=== PATIENT | male | born 1990 | race Caucasian/White ===

== ENCOUNTER 2023-01-06 08:00 | Inpatient (IN) ==
--- NOTE | 2022-12-10 10:04 | PAT Medication Instructions ---
Medication Instructions Date of Service December 10, 2022 Home Medications cetirizine 10 mg tablet (Zyrtec) 10 mg PO QAM PRN seasonal allergies acetaminophen 650 mg tablet,extended release 650 mg PO Q12H PRN Pain gabapentin 300 mg capsule 900 mg PO HS DO NOT take the morning of surgery cetirizine 10 mg tablet (Zyrtec) 10 mg PO QAM PRN seasonal allergies Take morning of surgery With a small sip of water, OTHERWISE NOTHING TO EAT OR DRINK AFTER MIDNIGHT: acetaminophen 650 mg tablet,extended release 650 mg PO Q12H PRN Pain (if needed) Take evening before surgery acetaminophen 650 mg tablet,extended release 650 mg PO Q12H PRN Pain (if needed) gabapentin 300 mg capsule 900 mg PO HS Other Notes If you have any questions please call us at [phone] or [phone] or [phone] or [phone]
--- NOTE | 2022-12-12 10:49 | Anesthesiology Consultation ---
Date of Service December 12, 2022 Assessment & Plan (1) Encounter for pre-operative examination: - COVID screening: Per assessment on 12/12: No known COVID-19 positive contacts or current COVID-19 related symptoms. Travel screen negative. At surgeon discretion if preop Covid testing being done. - Preop EKG: TWA, consider lateral ischemia on preop EKG performed 12/12/22. Note written to PCP. Awaiting EKG response and surgeon-ordered preop evaluation (Dr. Ramirez/ANGELINA, appt 12/15). Chart Review Chart Review: Patient seen in Pre Admission Testing Teaching & Discussion Pre-Anesthesia Teaching/Discussion Notes: Instructed NPO after midnight before surgery,except medications with 15 cc of water. Medication instructions provided according to the PAT guidelines. History Surgery Operation Date: 01/06/23 13:25 Proposed Procedures p L4-S1 Decompression and Fusion, Spinal Cord Monitoring - Eusebio Rivera, Height/Weight Height: 5 ft 9 in Weight: 86.6 kg Allergies Allergy/AdvReac Type Severity Reaction Status Date / Time nickel Allergy Mild Mild skin Verified 12/10/22 13:06 irritation (with necklace) amoxicillin Allergy Unknown Hives Verified 12/10/22 13:06 cefaclor Allergy Unknown Hives Verified 12/10/22 13:06 clavulanic acid Allergy Unknown Hives Verified 12/10/22 13:06 Medications Home Medications Medication Instructions Recorded Confirmed Last Taken cetirizine 10 mg tablet (Zyrtec) 10 mg PO QAM PRN seasonal allergies 04/29/19 12/05/22 04/29/19 acetaminophen 650 mg 650 mg PO Q12H PRN Pain 12/05/22 12/05/22 Unknown tablet,extended release gabapentin 300 mg capsule 900 mg PO HS 12/05/22 12/05/22 Unknown Past Medical History Medical History Chronic back pain Degenerative disc disease History of COVID-19 end (home test)- muscle pain and mild cold symptoms > resolved Lumbar disc herniation Peripheral neuropathy Seasonal allergies Exercise / Class Metabolic Activity II 4-5 Yardwork/Stairs/Walk up hill Past Family History Family History Other No family history of adverse response to anesthesia Past Surgical History Surgical History H/O wisdom tooth extraction Hx of tonsillectomy S/P epidural steroid injection lumbar x1 S/P lumbar laminectomy 2015, [facility] Past Anesthesia History No Hx of Anesthesia Complications and No Family Hx of Anesthesia Complications History of PONV No Hx of PONV and No Hx of Motion Sickness Social History Smoking Status: Current some day smoker tobacco type: cigars and e-cigarettes Smoking cigarettes per day: Vapes daily, cigars occasionally (advised) Do You Dip or Chew Tobacco: No Hx Alcohol Use: Yes Alcohol type: beer alcohol intake frequency: a few times a week Hx Substance Use: No substance use type: does not use Review of Systems Patient denies chest pain, shortness of breath, dyspnea on exertion, fever, chills, cough, wheezing, palpitations. Physical Exam Vital Signs VITALS BP 131/89 P 96 TEMP 98.4 SP02 97%RA RESP 16 PHYSICAL Full cervical extension range of motion. Full TMJ range of motion. TMD 3 finger breaths Mallampati Score 3 Dentition: missing molar, + crowns (molars) Lungs: clear throughout to auscultation Cardiac: regular rate and rhythm, no murmurs noted Spine: normal Carotid arteries: negative bruit Extremities: no edema Lab Results Anesthesia Preop Results Results Anesthesia Widget: WBC 7.71 K/ul (4.8-10.8) 12/12/22 Hgb 14.1 g/dl (14.0-18.0) 12/12/22 Hct 39.1 % (42.0-52.0) L 12/12/22 Plt 412 K/uL (130-400) H 12/12/22 Na 139 mmol/L (136-145) 12/12/22 K 3.9 mmol/L (3.5-5.1) 12/12/22 Cl 104 mmol/L (98-107) 12/12/22 CO2 27 mmol/L (21-32) 12/12/22 BUN 15 mg/dl (6-23) 12/12/22 Creat 0.84 mg/dl (0.6-1.4) 12/12/22 Glucose Level 99 mg/dl (70-99(Fasting)) 12/12/22 PT 10.9 Seconds (9.0-12.0) 12/12/22 PTT 24.8 Seconds (21.0-31.0) 12/12/22 INR 1.0 (0.9-1.1) 12/12/22 Urine Color Yellow 12/12/22 Urine Appearance Clear (Clear) 12/12/22 Urine pH 5.0 (4.5-7.5) 12/12/22 Urine Specific [place] 1.025 (1.000-1.030) 12/12/22 Urine Protein Negative (Negative) 12/12/22 Urine Glucose (UA) Negative (Negative) 12/12/22 Urine Ketones Trace (Negative) H 12/12/22 Urine Blood Negative (Negative) 12/12/22 Urine Nitrite Negative (Negative) 12/12/22 Urine Bilirubin Negative (Negative) 12/12/22 Urine Urobilinogen Negative (Negative) 12/12/22 Urine Leukocyte Esterase Negative (Negative) 12/12/22 Blood Type A Positive 12/12/22 Antibody Screen NEGATIVE 12/12/22 Testing Electrocardiogram Date: 12/12/22 NSR at 88bpm. Rightward axis. TWA, consider lateral ischemia. Chest X-Ray Date: 12/12/22 FINDINGS: No lines and tubes are seen. The cardiomediastinal silhouette is normal. The lungs are clear. No evidence of pleural effusion or pneumothorax. IMPRESSION: No acute chest disease. COVID-19 Risk Screen Screening Information COVID-19 Screen Date: 12/12/22 Exposure 21 Days Family/Household +COVID Last 21 Days: No Exposure 10 Days Any COVID Exposure Last 10 Days: No Symptoms Last 10 Days Experienced COVID Sx Last 10 Days: No + COVID 0-90 Days COVID + in Last 0-90 Days: No
[~2023-01-06 08:00] MED LIST: ACETAMINOPHEN 500 MG TAB PO SCH; ALLERGY Noted to ORDERED Medication SCH; CeleBREX 200 MG CAP PO SCH; GABAPENTIN 900 MG DOSE PO SCH; LR 15ML/HR IV SCH
[2023-01-06] MEDS ORDERED: ONDANSETRON INJ 2 MG/ML 2 ML VIAL ONE (08:26)
[2023-01-06] MEDS ORDERED: PROPOFOL IV EMULSION 10 MG/ML 20 ML VIAL IV ONE (08:26)
[2023-01-06] MEDS ORDERED: ROCURONIUM BROMIDE 10 MG/ML 5 ML VIAL IV ONE (08:26)
[2023-01-06] MEDS ORDERED: LIDOCAINE 2% MPF LOCAL 5 ML VIAL INFIL ONE (08:26)
[2023-01-06] MEDS ORDERED: MIDAZOLAM HCL 1 MG/ML 2ML VIAL ONE (08:26)
[2023-01-06] MEDS ORDERED: fentaNYL citrate PF 100 MCG/2 ML VIAL ONE ×3 (08:26→12:17)
[2023-01-06] MEDS ORDERED: DEXAMETHASONE SOD INJ 4 MG/ML VIAL ONE (08:26)
--- NOTE | 2023-01-06 09:14 | History & Physical Bridge Note ---
Date of Service January 06, 2023 History & Physical Bridge Note I have examined the patient, reviewed the History & Physical and in the interval since the performance of the History & Physical I have noted the following changes of clinical significance: no changes noted
--- NOTE | 2023-01-06 09:15 | History & Physical Report ---
Date of Service January 06, 2023 Assessment & Plan (1) Lumbar disc herniation with radiculopathy: Plan: L4-S1 decompression and fusion History of Present Illness Chief Complaint: Back and leg pain Primary Care Provider: Steve Ramirez MD This is a 32 male who presents with chronic persistent back and leg pain after failing course of nonoperative care is here for surgical intervention. Allergies Allergy/AdvReac Type Severity Reaction Status Date / Time nickel Allergy Mild Mild skin Verified 01/06/23 08:20 irritation (with necklace) amoxicillin Allergy Unknown Hives Verified 01/06/23 08:20 cefaclor Allergy Unknown Hives Verified 01/06/23 08:20 clavulanic acid Allergy Unknown Hives Verified 01/06/23 08:20 Home Medications Medication Instructions Recorded Confirmed Type cetirizine 10 mg tablet (Zyrtec) 10 mg PO QAM PRN seasonal allergies 04/29/19 01/06/23 History acetaminophen 650 mg 650 mg PO Q12H PRN Pain 12/05/22 01/06/23 History tablet,extended release gabapentin 300 mg capsule 900 mg PO HS 12/05/22 01/06/23 History ibuprofen 800 mg tablet 1 mg PO DIRECTED 01/06/23 01/06/23 History Past Med/Surg History Medical History Chronic back pain Degenerative disc disease History of COVID-19 end (home test)- muscle pain and mild cold symptoms > resolved Lumbar disc herniation Peripheral neuropathy Seasonal allergies Surgical History H/O wisdom tooth extraction Hx of tonsillectomy S/P epidural steroid injection lumbar x1 S/P lumbar laminectomy 2014, [facility] Family History Other No family history of adverse response to anesthesia Social History Smoking Status: Current some day smoker Cigarettes Per Day: Vapes daily, cigars occasionally (advised); Second Hand Exposure: No; Do You Dip or Chew Tobacco: No; Tobacco Cessation Education Requested by Patient: No Hx Alcohol Use: Yes Alcohol type: beer Hx Substance Use: No Preferred Language: Uzbek Communication Ability: Effective Manager Human Capital Required: No Beliefs That Will Affect Care: None Current Living Situation: Spouse and Family Current Living Situation Comment: and 2 children Other Information That Helps Us Care for You: No Feels Safe at Home: Yes Safety Concerns: Feels Safe At This Time Assistive Devices: Brace/Splint/Immobilizer Assistive Devices Comment: back brace PRN Physical Exam Physical Exam: Patient is alert and oriented Heart regular rhythm Lungs clear Results & Data Results & Data Vital Signs (Past 12 Hours) Vital Signs Temp Pulse Resp BP Pulse Ox O2 Del Method 01/06/23 08:24 36.8 C 91 H 20 132/86 95 Room Air
[2023-01-06] MEDS ORDERED: CLINDAMYCIN 900 MG/D5W 50 ML BAG IV ONE (09:21)
[2023-01-06] MEDS ORDERED: BUPIVACAINE/EPINEPHRINE 0.5% MPF 1:200,000 30 ML VIAL ONE (09:29)
[2023-01-06] MEDS: ceFAZolin 330 MG/ML 1 GM VIAL ONE ×2 (09:51→10:34)
[2023-01-06] MEDS ORDERED: FLOSEAL HEMOSTATIC MATRIX 10ML TOP ONE (10:35)
[2023-01-06] MEDS ORDERED: SUGAMMADEX SODIUM 200 MG/2 ML VIAL IV ONE (11:19)
--- NOTE | 2023-01-06 11:42 | Operative Report ---
Post Operative Report Pre & Post Diagnosis Operation Date: 01/06/23 09:35 Pre-Op Diagnosis: Recurrent lumbar Disc Herniation with Radiculopathy Post-Op Diagnosis: Same I identified the patient and participated in the time-out.: Yes Procedure Operation Date: 01/06/23 09:35 Actual Procedures #1 revision decompression with bilaterally. Recent foraminotomies L4-L5 L5-S1. #2 posterior spinal fusion L4-L5 L5-S1. #3 placement posterior instrumentation L4-L5 L5-S1. #4 interbody fusion L4-L5 L5-S1. #5 placement of Spira 15 x 26 mm cage at L4-L5 and 13 x 26 mm cage at L5-S1. #6 placement locally harvested morselized autograft in the posterior gutters. #7 placement of I factor combined with V toss in the interbody space and posterior gutters. Surgeon Eusebio Rivera DO Organizational Development Specialist Rosario Brewer Estimated Blood Loss 100 Findings Consistent with Post-Op Diagnosis Specimens None Indications This is a 32-year-old male who presents above-mentioned diagnosis after failing since course of nonoperative care is here for surgical invention. Description of Procedure Patient was met with identified informed consent obtained. Patient was then taken to the operative suite underwent ablation placed in a prone position on the Deon table atop the Jonathan frame. All bony promises well-padded eyes inspected to ensure no external pressure placed upon the. This point the lumbar spine was prepped and draped in normal sterile fashion. Sharp dissection with the assistance of Bovie cautery from down to and exposing the remaining lamina and transverse processes of L4-5 and sacral ala bilaterally. From caudal cephalad fashion revision complete laminectomy of L5 and L4 was performed including medial facetectomies and foraminotomies as well as addressing recurrent massive disc herniation L5-S1 the right. After complete decompression pedicle screws were placed in L4-L5 and S1 levels bilaterally with assistance of fluoroscopy and properly sized albertina placed. By way of transforaminal approach on the right complete discectomy of L5-S1 was performed endplates curetted to subco rtical bleeding bone and a 13 x 26 mm Spira cage with I factor tapped in position. Then proceeded to L4-L5 and again by way of a transforaminal approach and right complete discectomy performed endplates curetted to subcortical bleeding bone and a 15 x 26 mm Spira cage with I factor tapped in position. The rods were then compressed locked in final position bilaterally. The transverse processes of L4-5 and sacral ala burred to subcortically bone. I factor amount of the test and locally harvested morselized autograft placed in the posterior gutters. 15 round SHARAN drain inserted. The incision was then closed with 1 Vicryl to fascia 2-0 Vicryl subcutaneously and 4 Monocryl for final skin closure. Steri-Strip sterile dressings placed. Patient waken taken to PACU in stable condition. Please note spinal cord monitoring was utilized at the procedure and no changes noted. Lastly Rosario Brewer was present out the entire procedure and with the patient positioning complex portions of the surgery and final skin closure. I attest to the content of the Intraoperative Record and any orders documented therein. Any exceptions are noted below.
--- NOTE | 2023-01-06 12:07 | Fluoroscopy Report ---
INTRAOPERATIVE RADIOGRAPHS CLINICAL HISTORY: L4-S1 spinal fusion. Fluoro time: 24 seconds. Exposure: 19.6 mGy FINDINGS: 2 spot fluoroscopic views of the lumbar spine are presented. There has been discectomy at L 4-L5 and L5-S1 with laminectomy and posterior fusion at L4-S1. Interpedicular screws are present at a ll levels. The orthopedic hardware appears intact. IMPRESSION: Intraoperative images from lumbar spinal fusion surgery as above. Electronically signed by: Antwon Velez M.D. 01/06/2023 12:06 PM
[2023-01-06] MEDS: fentaNYL citrate PF 100 MCG/2 ML VIAL IV PRN ×2 (12:20→12:29)
[2023-01-06] MEDS ORDERED: HYDROmorphone INJ 1 MG/ML SYRINGE ONE (12:38)
[2023-01-06] MEDS ORDERED: ONDANSETRON INJ 2 MG/ML 2 ML VIAL IV PRN ×2 (12:40→13:36)
[2023-01-06] MEDS ORDERED: fentaNYL citrate PF 100 MCG/2 ML VIAL IV PRN (12:40)
[2023-01-06] MEDS ORDERED: PROMETHAZINE HCL 12.5 MG in SODIUM CHLORIDE 0.9% 50 ML IV PRN ×2 (12:40→13:36)
[2023-01-06] MEDS ORDERED: ePHEDrine sulfate 50 MG/ML AMP IV PRN (12:40)
[2023-01-06] MEDS ORDERED: ATROPINE SULFATE 0.1 MG/ML 10ML SYR IV PRN (12:40)
[2023-01-06] MEDS: HYDROmorphone INJ 2 MG/ML SYR/VIAL IV PRN ×2 (12:52→12:58)
--- NOTE | 2023-01-06 13:08 | Anesthesiology Progress Note ---
Date of Service January 06, 2023 Anesthesia Post Procedure Vital Signs Vital Signs: Temp Pulse Pulse Resp BP Pulse Ox O2 Del Method 01/06/23 12:59 72 12 110/61 100 Nasal Cannula 01/06/23 12:50 75 12 113/62 98 Nasal Cannula 01/06/23 12:40 70 12 108/62 100 Nasal Cannula 01/06/23 12:30 76 12 112/55 L 96 Nasal Cannula 01/06/23 12:20 77 14 116/70 97 Room Air 01/06/23 12:10 36.1 C L 84 12 116/74 100 Oxymask 01/06/23 12:00 36.1 C L 86 13 122/60 100 Oxymask 01/06/23 11:53 36.1 C L 97 H 9 L 122/71 99 Oxymask 01/06/23 08:24 36.8 C 91 H 20 132/86 95 Room Air O2 Flow Rate 01/06/23 12:59 3 01/06/23 12:50 3 01/06/23 12:40 3 01/06/23 12:30 3 01/06/23 12:20 01/06/23 12:10 5 01/06/23 12:00 5 01/06/23 11:53 8 01/06/23 08:24 Pain Intensity Right Lower Buttock: Pain Intensity: 4 Transfer of Care Handoff Completed per policy Notes Mental Status: alert / awake / arousable and participated in evaluation Patient Amnestic to Procedure: Yes Nausea / Vomiting: adequately controlled Pain: adequately controlled Airway Patency, RR, SpO2: stable & adequate BP & HR: stable & adequate Hydration State: stable & adequate Anesthetic Complications: no major complications apparent
[2023-01-06] MEDS ORDERED: METOCLOPRAMIDE HCL INJ 5 MG/ML 2 ML VIAL IV PRN (13:36)
[2023-01-06] MEDS ORDERED: HYDROmorphone INJ 0.5 MG/0.5 ML SYR IV PRN (13:36)
[2023-01-06] MEDS ORDERED: LORazepam 0.5 MG TAB PO PRN (13:36)
[2023-01-06] MEDS ORDERED: FAMOTIDINE 20 MG TAB PO PRN (13:36)
[2023-01-06] MEDS ORDERED: ACETAMINOPHEN 500 MG TAB PO PRN (13:36)
[2023-01-06] MEDS ORDERED: diphenhydrAMINE Capsule 25 MG CAP PO PRN (13:36)
[2023-01-06] MEDS ORDERED: LORazepam 2 MG/1 ML VIAL IV PRN (13:36)
[2023-01-06] MEDS ORDERED: SOD PHOSPHATE/SOD BIPHOSPHATE ENEMA 132 ML BTL PR PRN (13:36)
[2023-01-06] MEDS ORDERED: bisacodyL 10 MG SUPP PR PRN (13:36)
[2023-01-06] MEDS ORDERED: ONDANSETRON 4 MG OD TAB PO PRN (13:36)
[2023-01-06] MEDS ORDERED: hydrOXYzine HCl 25 MG TAB PO PRN (13:36)
[2023-01-06] MEDS ORDERED: HYDROmorphone INJ 1 MG/ML SYRINGE IV PRN (13:36)
[2023-01-06] MEDS ORDERED: ALUMINUM/MAGNESIUM SUSP 30 ML UDC PO PRN (13:36)
[2023-01-06] MEDS ORDERED: CETIRIZINE HCL 10 MG TABLET PO PRN (13:36)
[2023-01-06] MEDS ORDERED: DO NOT ADMINISTER PNEUMOCOCCAL VACCINE PRN (13:36)
[2023-01-06] MEDS ORDERED: DO NOT ADMINISTER FLU VACCINE PRN (13:36)
[2023-01-06] MEDS ORDERED: MAGNESIUM HYDROXIDE SUSP 30 ML UDC PO PRN (13:36)
[2023-01-06] MEDS ORDERED: ACETAMINOPHEN 1,000 MG/100 ML VIAL IV PRN (13:36)
[2023-01-06] MEDS ORDERED: NALOXONE HCL 0.4 MG/1 ML VIAL/CARP IV PRN (13:36)
[2023-01-06] MEDS: LACTATED RINGER'S 1,000 ML IV SCH ×2 (13:57→22:09)
[2023-01-06] MEDS: CLINDAMYCIN/D5W 600 MG/50 ML BAG IV SCH (16:55)
[2023-01-06] MEDS: oxyCODONE HCL IR 5 MG TAB (IMMEDIATE RELEASE) PO PRN (20:04)
[2023-01-06] MEDS: DOCUSATE SODIUM/SENNA 50/8.6MG TAB PO SCH (20:04)
[2023-01-06] MEDS: GABAPENTIN 300 MG CAP PO SCH (20:04)
[2023-01-07] MEDS: oxyCODONE HCL IR 5 MG TAB (IMMEDIATE RELEASE) PO PRN ×5 (00:40→19:17)
[2023-01-07] MEDS: CLINDAMYCIN/D5W 600 MG/50 ML BAG IV SCH (01:37)
[2023-01-07] MEDS: LACTATED RINGER'S 1,000 ML IV SCH (02:46)
[2023-01-07] MEDS: POLYETHYLENE (MIRALAX) 17 GM PACK PO SCH ×2 (05:21→11:10)
[2023-01-07 06:50] LABS: Basophils # (auto) 0.04 K/uL (0-0.2); Basophils % (auto) 0.2 %; Eosinophils # (auto) 0.02 K/uL (0-0.50); Eosinophils % (auto) 0.1 %; Hematocrit (blood only) 34.6 % (42.0-52.0); Hemoglobin 12.2 g/dl (14.0-18.0); Immature Granulocytes # (auto) 0.07 K/uL (0.01-0.20); Immature Granulocytes % (auto) 0.4 %; Lymphocytes # (auto) 1.72 K/uL (1.2-3.4); Lymphocytes % (auto) 10.4 %; Mean Corpuscular Hemoglobin 29.3 pg (25.0-34.0); Mean Corpuscular Hgb Conc 35.3 g/dL (32.0-36.0); Mean Corpuscular Volume 83.2 fL (80.0-100.0); Mean Platelet Volume 9.2 fL (9.4-12.4); Monocytes # (auto) 1.39 K/uL (0.11-0.59); Monocytes % (auto) 8.4 %; Neutrophils # (auto) 13.33 K/uL (1.40-6.50); Neutrophils % (auto) 80.5 %; Platelet Count 344 K/uL (130-400); RDW Coefficient of Variation 11.9 % (11.5-14.5); RDW Standard Deviation 35.8 fL (36.4-46.3); Red Blood Count 4.16 M/uL (4.70-6.10); White Blood Count 16.57 K/ul (4.8-10.8)
[2023-01-07 07:07] LABS: BUN Creatinine Ratio 11.4 (10-20); Creatinine Clr Calc Pharmacy 131.8 ml/min; Est GFR (African American) 135.8 ml/min; Est GFR (Non-African American) 117.2 ml/min; Potassium 3.5 mmol/L (3.5-5.1)
[2023-01-07] MEDS: dexAMETHasone 6 MG in SYRINGE 0 ML IV SCH (07:37)
--- NOTE | 2023-01-07 08:34 | Orthopedic Progress Note ---
Date of Service January 07, 2023 Assessment & Plan (1) Lumbar disc herniation with radiculopathy: Plan: Jermaine is postoperative day 1 status post TLIF L4-5, L5-S1. He will start physical therapy today. Maintain SHARAN drain. DVT prophylaxis is in the form of teds and SCDs. Continue with aggressive bowel regimen. Anticipate discharge home tomorrow. Admission and Anticipated Discharge Date Admission Date: January 06, 2023 Mimi Dean is postoperative day 1 status post TLIF L4-5, L5-S1. He has had an uneventful evening. H&H this morning are 12.2 and 34.6 respectively. SHARAN drain output last shift was 85 cc. He has no complaints of back or leg pain. Review of Systems Review of Systems: All systems reviewed & are unremarkable except as noted in HPI & below Physical Exam Physical Exam: He is lying in bed in no acute distress Alert and oriented x3 Lumbar dressing is clean dry and intact with functioning SHARAN drain Calf soft and nontender bilaterally Strength is intact bilateral lower extremities EFE hose intact bilateral lower extremities Results & Data Vital Signs (Past 12 Hours) Vital Signs Temp Pulse Pulse Resp BP BP Pulse Ox 01/07/23 07:33 36.8 C 69 16 97/56 L 97 01/07/23 03:01 36.8 C 81 18 120/67 95 01/06/23 20:44 36.6 C 90 16 129/71 94 O2 Del Method 01/07/23 07:33 Room Air 01/07/23 03:01 Room Air 01/06/23 20:44 Room Air
[2023-01-07] MEDS: traMADol HCL 50 MG TABLET PO PRN ×2 (09:06→17:03)
[2023-01-07] MEDS: GABAPENTIN 300 MG CAP PO SCH (20:33)
[2023-01-07] MEDS: DOCUSATE SODIUM/SENNA 50/8.6MG TAB PO SCH (20:33)
[2023-01-08] MEDS: oxyCODONE HCL IR 5 MG TAB (IMMEDIATE RELEASE) PO PRN ×3 (00:18→09:29)
[2023-01-08] MEDS: dexAMETHasone 6 MG in SYRINGE 0 ML IV SCH (08:13)
--- NOTE | 2023-01-08 08:25 | Discharge Summary ---
Date of Service January 08, 2023 Principal Diagnosis Lumbar spinal stenosis with radiculopathy Discharge Data Allergies Allergy/AdvReac Type Severity Reaction Status Date / Time nickel Allergy Mild Mild skin Verified 01/06/23 08:20 irritation (with necklace) amoxicillin Allergy Unknown Hives Verified 01/06/23 08:20 cefaclor Allergy Unknown Hives Verified 01/06/23 08:20 clavulanic acid Allergy Unknown Hives Verified 01/06/23 08:20 Procedures Performed Operation Date: 01/06/23 09:35 Actual Procedures p L4-S1 Decompression and Fusion, Spinal Cord Monitoring(Not Applicable) - Eusebio Rivera DO Ordered Studies 01/06/23 09:35 FL lumbar spine 2-3V Routine Hospital Course (1) Lumbar disc herniation with radiculopathy: Patient well-appearing patient patient tolerated this well was taken orthopedic for postoperative pain postop day 1 is up and ambulating progress postop day #2 she began decreased appropriate production strength testing. Socially discharged home. Discharge orders and instructions found in chart for review. Total Time Total Time Spent Total Time Spent (In Minutes): 20 minutes Discharge Plan Discharge Items Patient Disposition: Home - Self-Care Reason For Visit: Disc Disorders with Radiculopathy, Lumbar Region Discharge Diagnosis: Lumbar spinal stenosis with radiculopathy Activity: As commented below Non-emergency contact: Primary Care Provider Call non-emergency contact if: you have any medication questions Follow-up/Referrals: Steve Ramirez MD [Primary Care Provider] - Diet: Regular Addtl Attending Provider Instructions: ACTIVITY RECOMMENDATIONS: SELF CARE INSTRUCTIONS AFTER THORACIC/LUMBAR FUSIONS 1. You may walk to your tolerance. It is good exercise for your legs and back. Expect some back and intermittent leg aches and pains. 2. You may perform "counter-top" level activities (make a sandwich, cassandra with a project, etc.). 3. No bending or lifting of more than 10 pounds or back twisting of any nature (roll like a log when turning in bed). 4. You may ride in a car for 20-30 minutes at a time. No driving until after your first visit with your doctor. 5. Frequent changes of position and restricting sitting to 30 minutes at a time will help limit the amount of back spasms and stiffness you may experience. 6. You may discontinue the use of ambulatory aids (cane, crutches, etc.) once your strength and confidence allow. 7. You may instructional developer the shower and let water strike your incision when you arrive home at least once daily. Do not take a tub bath, sit in a hot tub or go into a swimming pool until after your first recheck in the office. SPECIAL CARE INSTRUCTIONS: VERY IMPORTANT TO READ AND REVIEW A. Your surgical incision has been closed with a cosmetic suture under the skin that will dissolve in about 6 weeks. In 14 days, you can use a pair of clean scissors and cut the suture that is left outside of the skin at the ends of your incision. 1. The small skin tapes can be removed 7 days after surgery if they have not fallen off by that point. 2. You may keep the wound open to air as much as possible to promote healing after post-op day number 5 unless told otherwise by your doctor. 3. If you think the wound looks like it is becoming infected (redness or worsening drainage) and/or you are experiencing fever, chill or worsening back pain and muscle spasms, contact the office so that we may evaluate you as soon as possible. B. Complications are uncommon, but please contact us if you have any signs or symptoms of: 1. wound infection (fever higher than 102.5 degrees F, redness, separation of wound, drainage, or increasing pain from the incision) 2. blood clots in legs (pain, swelling, redness and warmth in legs) 3. urinary tract infection (fever higher than 102.5 degrees F, burning upon urination or increased frequency of urination) 4. nerve problems (inability to walk on your toes or heels, numbness, loss of bowel or bladder control) 5. any other symptoms that concern you C. Please call the office at if you have any concerns or questions about your operation or recovery. D. No smoking! Smoking drastically decreases the chance of a solid fusion. E. Do not take any anti-inflammatory medications (Indocin, Advil, Motrin, Aspirin, Naprosyn, etc.) as these may inhibit the chance of a solid fusion. Tylenol is okay to take for pain. MANAGING PAIN AFTER SPINAL SURGERY 1. Narcotic medication is intended for short-term use and will be provided for surgical pain. Surgical pain usually lasts for a period of 4-6 weeks. Narcotic medication includes Percocet, Vicodin, Darvocet, Tylenol #3 or Lortab. 2. Longer-term pain is more appropriately treated with non-narcotic medication such as Tylenol ES. 3. Muscle spasm is not appropriately treated with narcotics. Muscle relaxers such as Soma, Flexeril or Skelaxin can be used along with Tylenol ES. 4. Remember that we all live with some "aches and pains". This is not unusual or uncommon after an injury or as we get older. a. Back pain is expected and may include muscle spasms for 4 to 6 weeks after surgery. The pain should gradually improve. If the pain worsens for no apparent reason, please contact the office. b. Intermittent leg pain may also be experienced and should not be concerned about unless it worsens for no apparent reason. If so, please contact the office. 5. We will provide appropriate medication within the normal guidelines of their prescribed use. We will also be very cautious and aware of potential abuse and extended duration of patients' medication needs. a. Pain medications are for your comfort and to assist with sleep and rest so that the tissue can heal. They are not provided in order to return to normal activity and should not be used through the day. To do so or worsening pain at night can result from ongoing tissue damage and development of tolerance to the prescribed medicine. 6. Please allow 2-3 days to process refills. Prescriptions will not be mailed but must be picked up at the office. FOLLOW UP VISIT: Keep your scheduled follow-up appointment. Any questions, please call the office at . Pending Studies at Discharge: No Stand-Alone Forms: My [facility] [address], Smoking Cessation Medications and DC Order Prescriptions: New tramadol 50 mg tablet 50 mg PO Q6H PRN (Reason: pain, moderate) Qty: 30 0RF oxycodone 5 mg tablet 5 mg PO Q6H PRN (Reason: pain, severe) Qty: 30 0RF Continued cetirizine [Zyrtec] 10 mg Tablet 10 mg PO QAM PRN (Reason: seasonal allergies) acetaminophen 650 mg Tablet Extended Release 650 mg PO Q12H PRN (Reason: Pain) gabapentin 300 mg Capsule 900 mg PO HS ibuprofen 800 mg Tablet 1 mg PO DIRECTED Discharge Orders: Discharge Order (Routine); Ordered 01/08/23 Ordered By: Eusebio Rivera Admission Data Admit Date/Time: 01/06/23 11:47 Attending Provider: Eusebio Rivera Admit Provider: Eusebio Rivera Primary Care Provider: Steve Ramirez
== END 2023-01-08 10:26 | disposition home or self-care (01) | DRG 455 ==
LOC: ASU 08:00 → 3E 11:47